=== PATIENT | male | born 2000 | race Two or more races ===

== ENCOUNTER 2020-06-09 20:16 | Emergency (ER) | payer SELFPAY ==
[~2020-06-09] VITALS: Ht 172.7 cm; Wt 95.3 kg
[2020-06-09 20:28] VITALS: BP 132/88
[2020-06-10] MEDS ORDERED: ZINC220C8 PO (18:34)
[2020-06-10] MEDS ORDERED: METH4TAB47 PO (18:34)
[2020-06-10] MEDS ORDERED: ASCO500T11 PO (18:34)
[2020-06-10] MEDS ORDERED: CHOL400T13 PO (18:34)
[2020-06-10] MEDS ORDERED: SULF400T11 PO (18:34)
== END 2020-06-09 22:10 | disposition home or self-care (01) ==
LOC: ER 20:16
DX: U07.1 COVID-19 (principal)
CPT/HCPCS: 36415; 71045; 87426

== ENCOUNTER 2020-06-10 12:36 | Inpatient (IN) | payer OTHER ==
[~2020-06-10] VITALS: Ht 175.3 cm; Wt 116.4 kg
[2020-06-10] MEDS ORDERED: ACETAMINOPHEN 325 MG TAB PO ONE (13:00)
[2020-06-10] MEDS ORDERED: SODIUM CHLORIDE 0.9% 1,000 ML IVB ONE (13:15)
[2020-06-10] MEDS ORDERED: ZINC SULFATE 220mg CAP or TAB PO ONE (13:15)
[2020-06-10] MEDS ORDERED: ASCORBIC ACID 500 MG TAB PO ONE (13:15)
[2020-06-10] MEDS ORDERED: cefTRIAXone 1GM/50ML D5W 50 ML IV ONE (13:15)
[2020-06-10] MEDS ORDERED: ACETAMINOPHEN 500 MG TAB PO ONE (13:15)
[2020-06-10] MEDS ORDERED: DOXYCYCLINE 100MG/250ML 250 ML IV ONE (13:15)
[2020-06-10] MEDS ORDERED: LORazepam 0.5 MG TAB PO PRN (16:00)
[2020-06-10] MEDS ORDERED: ONDANSETRON HCL 4 MG/2 ML VIAL IV PRN (16:00)
[2020-06-10] MEDS ORDERED: HYDROcodone-ACET 5/325MG TAB PO PRN (16:00)
[2020-06-10] MEDS ORDERED: ALUM & MAG HYDROX-SIMETH LIQ(MAALOX) 30 ML PO PRN (16:00)
[2020-06-10] MEDS ORDERED: ACETAMINOPHEN 500 MG TAB PO PRN (16:00)
[2020-06-10] MEDS ORDERED: ACETAMINOPHEN 325 MG TAB PO PRN (16:00)
[2020-06-10] MEDS ORDERED: MORPHINE SULF INJ 2 MG/ML SYRINGE 1ML IV PRN ×2 (16:00)
[2020-06-10] MEDS ORDERED: NITROGLYCERIN 0.4 MG SL TAB SL PRN (16:00)
[2020-06-10] MEDS ORDERED: SODIUM CHLORIDE 0.9% 1,000 ML IV SCH (16:00)
[2020-06-10] MEDS ORDERED: DOCUSATE SOD 100 MG CAP PO PRN (16:00)
[2020-06-10 16:54] LABS: Basophils # (auto) 0 10 ^3/uL (0-0.2); Basophils % (auto) 0.8 % (0.0-2.0); Eosinophils # (auto) 0 10 ^3/uL (0-0.8); Eosinophils % (auto) 0.1 % (0.0-7.0); Hematocrit 46.4 % (41.0-53.0); Hemoglobin 15.7 g/dL (13.5-17.5); Lymphocytes # (auto) 0.5 10 ^3/uL (0.4-5.4); Lymphocytes % (auto) 12.1 % (10.0-50.0); Mean Corpuscular Hemoglobin 29.9 pg (28.0-32.0); Mean Corpuscular Hgb Conc. 33.8 g/dL (32.0-36.0); Mean Corpuscular Volume 88.4 fL (80.0-100.0); Monocytes # (auto) 0.3 10 ^3/uL (0-1.3); Neutrophils # (auto) 3.4 10 ^3/uL (1.6-8.6); Nucleated Red Blood Cells % 0.4 %; Platelet Count (auto) 169 10^3/uL (140-450); Red Blood Cells 5.25 10^6/uL (4.5-5.90); White Blood Cell 4.3 10^3/uL (4.4-10.8)
[2020-06-10 16:55] LABS: Anion Gap 3 (5-15); Blood Urea Nitrogen 10 mg/dL (7-18); Calcium 8.6 mg/dL (8.5-10.1); Carbon Dioxide 29 mmol/L (21-32); Chloride 106 mmol/L (98-107); Glucose 96 mg/dL (74-106); Magnesium 2.6 mg/dL (1.6-2.6); Sodium 138 mmol/L (136-145)
[2020-06-10 16:59] LABS: Partial Thromboplastin Time 30.9 sec (23.0-31.2)
[2020-06-10 17:04] LABS: Alanine Aminotransferase 39 U/L (16-61); Alkaline Phosphatase 87 U/L (45-117); Aspartate Aminotransferase 33 U/L (15-37); BUN/Creatinine Ratio 11.1; Bilirubin, Total 0.6 mg/dL (0.2-1.0); CRP High Sensitivity 6.01 mg/dL (< 0.3); Cholesterol 119 mg/dL (< 200); GFR African American 137 mL/min; GFR Non-African American 113 mL/min; HDL Cholesterol 30 mg/dL (40-59); LDL Cholesterol 76 mg/dL (< 100); Lactate Dehydrogenase 248 U/L (87-241); Total Protein 8.2 g/dL (6.4-8.2); Triglycerides 125 mg/dL (< 150)
[2020-06-10] MEDS ORDERED: ASPirin 81 mg TAB PO ONE (18:30)
[2020-06-10] MEDS ORDERED: METH4TAB47 PO (18:34)
[2020-06-10] MEDS ORDERED: CHOL400T13 PO (18:34)
[2020-06-10] MEDS ORDERED: ASCO500T11 PO (18:34)
[2020-06-10] MEDS ORDERED: SULF400T11 PO (18:34)
[2020-06-10] MEDS ORDERED: ZINC220C8 PO (18:34)
[2020-06-10 20:10] VITALS: BP 110/63
--- NOTE | 2020-06-10 21:30 | NUR ---
Telemetry admit from [facility] admitted to Telemetry unit. Patient oriented to Berta Lau, primary RN, unit, room, bed, and unit policies regarding patient care and visiting hours. Patient now on continuous telemetry monitoring, tele box # 1 and telemetry reading on arrival to unit is . Patient weighed by bed scale and encouraged to call if they need something. All questions and concerns addressed, patient verbalized understanding.
[2020-06-10] MEDS ORDERED: ATORVASTATIN 20 MG TAB PO SCH (22:00)
[2020-06-10 22:30] VITALS: BP 118/67
[2020-06-10] MEDS: DOXYCYCLINE 100MG/250ML 250 ML IV SCH (23:23)
[2020-06-10] MEDS: BUDESONIDE (INHALATION) 180 MCG IH IN SCH (23:50)
[2020-06-10] MEDS: ALBUTEROL SULF HFA 90MCG INH 200DOSE IN SCH (23:51)
[2020-06-11 05:38] VITALS: BP 114/65
--- NOTE | 2020-06-11 05:53 | NUR ---
Patient with temp of 100.[address]
[2020-06-11] MEDS: BUDESONIDE (INHALATION) 180 MCG IH IN SCH ×2 (06:21→21:48)
--- NOTE | 2020-06-11 08:00 | NUR ---
ASSESSMENT NOTE PT IS ALERT ORIENTED X4, RESTING IN BED COMFORTABLY, ABLE TO VERBALIS HIS NEEDS SELF REPOSITION NEEDED, PAIN 0/10, OXYGEN 1 LITER NC, CALL LIGHT WITHIN REACH
[2020-06-11 08:33] LABS: Basophils # (auto) 0 10 ^3/uL (0-0.2); Basophils % (auto) 0.2 % (0.0-2.0); Eosinophils # (auto) 0 10 ^3/uL (0-0.8); Eosinophils % (auto) 0.1 % (0.0-7.0); Hematocrit 41.4 % (41.0-53.0); Hemoglobin 14.2 g/dL (13.5-17.5); Lymphocytes # (auto) 1.2 10 ^3/uL (0.4-5.4); Lymphocytes % (auto) 26.8 % (10.0-50.0); Mean Corpuscular Hemoglobin 30.3 pg (28.0-32.0); Mean Corpuscular Hgb Conc. 34.3 g/dL (32.0-36.0); Mean Corpuscular Volume 88.4 fL (80.0-100.0); Monocytes # (auto) 0.3 10 ^3/uL (0-1.3); Monocytes % (auto) 8.1 % (0.0-12.0); Neutrophils # (auto) 2.8 10 ^3/uL (1.6-8.6); Neutrophils % (auto) 64.8 % (37.0-80.0); Nucleated Red Blood Cells % 0.1 %; Platelet Count (auto) 173 10^3/uL (140-450); Red Blood Cells 4.69 10^6/uL (4.5-5.90); Red Cell Distribution Width 13.1 % (11.8-14.3); White Blood Cell 4.3 10^3/uL (4.4-10.8)
[2020-06-11 08:58] LABS: Albumin 3.5 g/dL (3.4-5.0); Calcium 8.5 mg/dL (8.5-10.1); Potassium 3.6 mmol/L (3.5-5.1)
[2020-06-11 09:00] VITALS: BP 115/67
[2020-06-11 09:00] LABS: Bilirubin, Total 0.6 mg/dL (0.2-1.0); Total Protein 7.2 g/dL (6.4-8.2)
[2020-06-11] MEDS: ALBUTEROL SULF HFA 90MCG INH 200DOSE IN SCH ×3 (09:03→21:48)
[2020-06-11] MEDS: DOXYCYCLINE 100MG/250ML 250 ML IV SCH ×2 (09:26→21:48)
[2020-06-11] MEDS: DexAMETHasone SOD PHOS 10MG/1ML VIAL INJ IV SCH (09:26)
[2020-06-11] MEDS: ENOXAPARIN SOD 40 MG/0.4 ML SYRINGE SC SCH (09:27)
[2020-06-11] MEDS: ASCORBIC ACID 1,000 MG TAB PO SCH (09:27)
[2020-06-11] MEDS: ZINC SULFATE 220mg CAP or TAB PO SCH (09:27)
[2020-06-11] MEDS: CHOLECALCIFEROL (VITD3) 2,000 UNIT CAP PO SCH (09:27)
[2020-06-11] MEDS ORDERED: ASPirin 81 mg TAB PO SCH (10:00)
[2020-06-11] MEDS ORDERED: POTASSIUM CHL 10 Meq TABLET PO ONE (11:45)
[2020-06-11] MEDS ORDERED: FUROSEMIDE 20 MG/2 ML VIAL IV ONE (11:45)
--- NOTE | 2020-06-11 11:45 | NUR ---
DR JIMENEZ CALLED PT OVER THE PHONE FOR FOLLOW UP
--- NOTE | 2020-06-11 12:11 | NUR ---
COVID SAMPLE SENT TO LAB
[2020-06-11 14:00] VITALS: BP 120/66
[2020-06-11 16:51] VITALS: BP 122/59
--- NOTE | 2020-06-11 18:59 | NUR ---
PT CONTINUE STABLE, CONTINUE MONITORING
--- NOTE | 2020-06-11 20:25 | NUR ---
Opening Shift Note Assumed care of patient, awake and alert. No S/S of distress/SOB or pain. POC discussed and questions answered. Bed is locked in lowest position with side rails up x2 for safety. Call light is within reach and patient encouraged to call for assistance as needed. Will continue to monitor for changes Q1hr and PRN.
[2020-06-11 22:00] VITALS: BP 115/60
[2020-06-12 04:55] VITALS: BP 119/66
[2020-06-12] MEDS: BUDESONIDE (INHALATION) 180 MCG IH IN SCH (07:20)
[2020-06-12] MEDS: ALBUTEROL SULF HFA 90MCG INH 200DOSE IN SCH (07:20)
[2020-06-12 08:00] VITALS: BP 120/66
--- NOTE | 2020-06-12 08:00 | NUR ---
ASSESSMENT NOTE PT IS ALERT ORIENTED X4, RESTING IN BED COMFORTABLY, ABLE TO VERBALIS HIS NEEDS SELF REPOSITION NEEDED, PAIN 0/10, ON ROOM AIR SAT AT 96 %,NO DISTRESS NOTED, CALL LIGHT WITHIN REACH
[2020-06-12 09:00] VITALS: BP 115/61
[2020-06-12] MEDS: DexAMETHasone SOD PHOS 10MG/1ML VIAL INJ IV SCH (09:11)
[2020-06-12] MEDS: DOXYCYCLINE 100MG/250ML 250 ML IV SCH (09:11)
[2020-06-12] MEDS: ASCORBIC ACID 1,000 MG TAB PO SCH (09:12)
[2020-06-12] MEDS: ZINC SULFATE 220mg CAP or TAB PO SCH (09:12)
[2020-06-12] MEDS: CHOLECALCIFEROL (VITD3) 2,000 UNIT CAP PO SCH (09:13)
[2020-06-12] MEDS: ENOXAPARIN SOD 40 MG/0.4 ML SYRINGE SC SCH (09:13)
--- NOTE | 2020-06-12 09:40 | NUR ---
DR JIMENEZ CALLED WITH PATIENT'S DISCHARGE HOME, SHE ALREADY SPOKE TO PT OVER THE PHONE
[2020-06-12] MEDS ORDERED: DOXY-286 PO (09:46)
[2020-06-12] MEDS ORDERED: FUROSEMIDE 20 MG/2 ML VIAL IV SCH (10:00)
[2020-06-12] MEDS ORDERED: POTASSIUM CHL 10 Meq TABLET PO SCH (10:00)
[2020-06-12 10:42] VITALS: BP 115/61
--- NOTE | 2020-06-12 11:20 | NUR ---
ALL DISCHARGE INSTRUCTION GIVEN TO PT VERBALIS UNDERSTANDING, PT WILL DRIVE HIM SELF HOME, N95 MASK GIVEN TO PT, AWAITING FOR THE [employer]CH[employer]ECT
--- NOTE | 2020-06-12 11:42 | NUR ---
Discharge instructions given as ordered. Encourage to follow up with PMD as instructed. All questions and concerns addressed. Patient verbalized understanding. Medication reconciliation form completed and copy given to patient. IV removed with catheter intact, pressure dressing applied.Telemetry unit returned to ICU. Patient ambulated out with all personal belongings, accompanied by staff and family member. No distress noted at time of departure. security and house keeping at his side.
== END 2020-06-12 11:42 | disposition home or self-care (01) | DRG 871 ==
LOC: ER 12:36 → TELE 12:37 → TELE-EAST 23:14
PROVIDERS: ADMIT Hospitalist; ATTEND Internal Medicine
DX: A41.89 Other specified sepsis (principal); U07.1 COVID-19; J12.89 Other viral pneumonia; E66.01 Morbid (severe) obesity due to excess calories; E78.5 Hyperlipidemia, unspecified; K29.70 Gastritis, unspecified, without bleeding; K21.9 Gastro-esophageal reflux disease without esophagitis; Z68.37 Body mass index [BMI] 37.0-37.9, adult; Z88.8 Allergy status to other drugs, medicaments and biological substances; Z82.49 Family history of ischemic heart disease and other diseases of the circulatory system
CPT/HCPCS: 36415; 71045; 80053; 80061; 82728; 83036; 83605; 83615; 83735; 84443; 84484; 85025; 85379; 85610; 85730; 86141; 87040; 93005; 94640; G0378; J0696; J1100; J3490